=== PATIENT | female | born 1990 | race Two or more races ===

== ENCOUNTER 2016-07-07 14:48 | Emergency (ER) | payer OTHER ==
[~2016-07-07] VITALS: Ht 152.4 cm; Wt 65.8 kg
--- NOTE | 2016-07-07 14:53 | NUR ---
PT BB [employer] FROM ASSISTED FOR LEFT WRIST SCABS. PLACED ON MONITOR. VSS. AWAITING MD ORDER.
--- NOTE | 2016-07-07 15:07 | NUR ---
MEDICALLY CLEAR FOR BOOKING
--- NOTE | 2016-07-07 15:07 | NUR ---
Patient discharged to home in stable condition. Written and verbal after care instructions given. Patient verbalizes understanding of instruction.
[2016-07-07 15:09] VITALS: BP 115/72
== END 2016-07-07 15:09 ==
LOC: ER 14:50
DX: S60.812A Abrasion of left wrist, initial encounter (principal); E11.9 Type 2 diabetes mellitus without complications; X78.8XXA Intentional self-harm by other sharp object, initial encounter; Y93.89 Activity, other specified; Y92.89 Other specified places as the place of occurrence of the external cause; Y99.9 Unspecified external cause status
CPT/HCPCS: 82962; 99283; A4606; Z7610